=== PATIENT | female | born 1945 | race Caucasian/White ===

== ENCOUNTER 2016-10-31 15:54 | Emergency (ER) | payer OTHER, MEDICARE ==
[~2016-10-31] VITALS: Ht 172.1 cm; Wt 72.8 kg
[2016-10-31 16:10] VITALS: BP 121/62; PULSE 69; RESP 16; TEMP 98; O2SAT 99
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
[2016-10-31] MEDS ORDERED: CYCLOBENZAPRINE HCL 10 MG TAB PO ONE (17:00)
[2016-10-31] MEDS ORDERED: IBUPROFEN 600 MG TAB PO ONE (17:00)
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
[2016-10-31] MEDS ORDERED: CYCL5TAB PO (18:16)
[2016-10-31] MEDS ORDERED: IBUP-232 PO (18:16)
== END 2016-10-31 18:24 | disposition home or self-care (01) ==
LOC: PHEFT 15:54
DX: S90.122A Contusion of left lesser toe(s) without damage to nail, initial encounter (principal); R07.89 Other chest pain; M79.7 Fibromyalgia; V43.62XA Car passenger injured in collision with other type car in traffic accident, initial encounter; Y99.8 Other external cause status
CPT/HCPCS: 71101; 73630; 99284